=== PATIENT | male | born 1980 | race Caucasian/White ===

== ENCOUNTER 2024-12-30 21:02 | Emergency (ER) | payer OTHER, SELFPAY ==
[2024-12-30 21:06] VITALS: BP 180/101
[2024-12-30 22:26] VITALS: BMI 29.9
[2024-12-30 22:32] VITALS: BP 173/93
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
[2024-12-31 00:48] VITALS: BP 149/78
== END 2024-12-31 00:49 | disposition home or self-care (01) ==
LOC: EMR 21:02
PROVIDERS: EMERGENCY PHYSICIAN Student in an Organized Health Care Education/Training Program; FAMILY PHYSICIAN Family Medicine
DX: T23.202A Burn of second degree of left hand, unspecified site, initial encounter (principal); R03.0 Elevated blood-pressure reading, without diagnosis of hypertension; X13.1XXA Other contact with steam and other hot vapors, initial encounter; Y93.H9 Activity, other involving exterior property and land maintenance, building and construction
CPT/HCPCS: 99283